=== PATIENT | female | born 1960 | race Caucasian/White ===

== ENCOUNTER 2016-11-06 17:23 | Emergency (ER) | payer MEDICAID ==
[2016-11-06 19:09] LABS: BASOPHILS 0.2 % (0-2); EOSINOPHILS 0.2 % (0-7); HEMATOCRIT 43.7 % (36.0-48.0); HEMOGLOBIN 15.4 g/dL (12-16); IMMATURE GRANULOCYTES 0.2 % (0-5); LYMPHOCYTES 14.9 % (15-50); MCH 34.8 pg (26.0-34.0); MCHC 35.2 g/dL (31.0-37.0); MCV 98.6 fL (80.0-100.0); MONOCYTES 8.9 % (2-11); NEUTROPHILS 75.6 % (40-80); PLATELET COUNT 215 10x3/uL (130-400); RBC 4.43 10x6/uL (4.00-5.40)
[2016-11-06 19:40] LABS: ALBUMIN 4.1 g/dL (3.4-5.0); ANION GAP 19.9 mmol/L (8-16); BILIRUBIN - TOTAL 0.49 mg/dL (0.2-1.3); CALCIUM 9.1 mg/dL (8.5-10.1); CARBON DIOXIDE 24.3 mmol/L (21.0-32.0); CREATININE - SERUM 1.1 mg/dL (0.6-1.3); MAGNESIUM - SERUM 1.9 mg/dL (1.8-2.4); POTASSIUM - SERUM 4.2 mmol/L (3.5-5.1); PROTEIN - SERUM 7.8 g/dL (6.4-8.2)
[2016-11-06 20:03] LABS: UDS - AMPHET NEGATIVE QUAL (NEGATIVE); UDS - BARB NEGATIVE QUAL (NEGATIVE); UDS - BENZO POSITIVE QUAL (NEGATIVE); UDS - COCAINE NEGATIVE QUAL (NEGATIVE); UDS - METH NEGATIVE QUAL (NEGATIVE); UDS - OPIATE NEGATIVE QUAL (NEGATIVE); UDS - PCP NEGATIVE QUAL (NEGATIVE); UDS - THC POSITIVE QUAL (NEGATIVE)
[2016-11-06 20:06] LABS: APPEARANCE HAZY (CLEAR); BILIRUBIN NEGATIVE (NEGATIVE); COLOR YELLOW (YELLOW); GLUCOSE 500 mg/dL (NEGATIVE); KETONE LARGE mg/dL (NEGATIVE); LEUKOCYTE ESTERASE TRACE (NEGATIVE); NITRITE NEGATIVE (NEGATIVE); PROTEIN NEGATIVE (NEGATIVE); SPECIFIC GRAVITY 1.015 (1.005-1.020); UROBILINOGEN NORMAL (NORMAL)
[2016-11-06 20:11] LABS: BACTERIA MODERATE /hpf (NONE SEEN); MUCUS <1+ /lpf (NONE SEEN); RED CELLS - URINE 0-5 /hpf (0-5)
== END 2016-11-06 21:05 | disposition home or self-care (01) ==
LOC: D.ER 17:23
PROVIDERS: Emergency Medicine; Nurse Practitioner Family
DX: K52.9 Noninfective gastroenteritis and colitis, unspecified (principal); F10.10 Alcohol abuse, uncomplicated; R10.9 Unspecified abdominal pain; I10 Essential (primary) hypertension

== ENCOUNTER 2018-01-05 08:32 | Day surgery (SDC) | payer MEDICAID ==
[~2018-01-05] VITALS: Ht 157.5 cm; Wt 68.0 kg
--- NOTE | ~2018-01-05 | OP ---
PATIENT NAME: ABDON FIGUEROA MEDICAL RECORD: [id number] :64 LOCATION:D.OPS ADMISSION DATE: SURGEON: SHASHI MACHUCA MD DATE OF OPERATION: 01/05/2018 PREOPERATIVE DIAGNOSES: 1. Left supraclavicular lipoma. 2. Diabetes mellitus. 3. Hypertension. 4. Arthritis. POSTOPERATIVE DIAGNOSES: 1. Left supraclavicular lipoma. 2. Diabetes mellitus. 3. Hypertension. 4. Arthritis. PROCEDURE: Excision of 5 cm left supraclavicular lipoma. SURGEON: Shashi Machuca MD REPORT OF PROCEDURE: The patient's left shoulder was prepped and draped in sterile fashion. An oblique incision approximately 4 cm in length was made overlying the lipoma. Electrocautery was used to dissect through the subcutaneous tissues. We encountered an area of lipomatous tissue and we began dissecting this out. As we got around the lipoma, we noted that the lipoma was actually projecting through the inferior lateral aspects of the platysma. We this musculature and at this point, there was approximately 5 cm lipoma present in the space underneath the muscle. This was completely excised. Once it was removed, we irrigated out the wound and assured there was no sign of any bleeding. A 10 mL of 0.25% Marcaine with epinephrine were infused into the surrounding tissues. We then reapproximated the subcutaneous tissues with interrupted 3-0 Vicryl and the skin was closed with running subcutaneous 5-0 Monocryl. COMPLICATIONS: None. CONDITION: Stable. ANESTHESIA: General endotracheal and local. BLOOD LOSS: Minimal. TRANSINT:[id number] Voice Confirmation ID: [id number] DOCUMENT ID: [id number] SHASHI MACHUCA MD CC: LAVONNE CEDILLO MD [id number] DICTATION DATE: 01/05/18 1536 [employer] OPERATOR: 01/05/18 1557 [id number] [place] [address]
[~2018-01-05 08:32] MED LIST: GLUCOPHAGE500 MG PO; PAXIL40 MG PO; XANAX1 MG PO; ZESTRIL20 MG PO
[2018-01-05 09:06] LABS: BASOPHILS 0.5 % (0-2); EOSINOPHILS 2.8 % (0-7); HEMATOCRIT 40.5 % (36.0-48.0); LYMPHOCYTES 23.9 % (15-50); MCH 34.2 pg (26.0-34.0); MCHC 34.6 g/dL (31.0-37.0); MEAN PLATELET VOLUME 9.9 fL (7.4-10.4); NEUTROPHILS 59.8 % (40-80); PLATELET COUNT 187 10x3/uL (130-400); RBC 4.09 10x6/uL (4.00-5.40); RDW 12.1 % (11.5-14.5); WBC 6.2 10x3/uL (4.8-10.8)
[2018-01-05 09:22] LABS: ANION GAP 16.8 mmol/L (8-16); CALCIUM 9.3 mg/dL (8.5-10.1); CARBON DIOXIDE 24.8 mmol/L (21.0-32.0); CREATININE - SERUM 0.9 mg/dL (0.6-1.3); POTASSIUM - SERUM 4.6 mmol/L (3.5-5.1)
[2018-01-05 10:43] VITALS: BP 115/73; Ht 157.5 cm; Wt 68.0 kg
[2018-01-05] MEDS ORDERED: NORCO 10-325 TA1 TAB PO (15:33)
== END 2018-01-05 17:30 | disposition home or self-care (01) ==
LOC: D.OPS 08:32 → D.PAN 10:40 → D.OPS 10:40
PROVIDERS: Surgery
DX: D17.1 Benign lipomatous neoplasm of skin and subcutaneous tissue of trunk (principal); E11.9 Type 2 diabetes mellitus without complications; I10 Essential (primary) hypertension; M19.90 Unspecified osteoarthritis, unspecified site; Z01.812 Encounter for preprocedural laboratory examination

== ENCOUNTER 2018-12-06 14:41 | Emergency (ER) | payer MEDICAID ==
[~2018-12-06] VITALS: Ht 157.5 cm; Wt 65.9 kg
[~2018-12-06 14:41] MED LIST changes: +NORCO 10-325 TA1 TAB PO
[2018-12-06 15:02] VITALS: Ht 157.5 cm; Wt 65.9 kg
[2018-12-06 15:30] LABS: BASOPHILS 0.1 % (0-2); EOSINOPHILS 0 % (0-7); HEMATOCRIT 41.9 % (36.0-48.0); HEMOGLOBIN 15.1 g/dL (12-16); IMMATURE GRANULOCYTES 0.3 % (0-5); LYMPHOCYTES 4.8 % (15-50); MCH 34.3 pg (26.0-34.0); MCV 95.2 fL (80.0-100.0); MEAN PLATELET VOLUME 10.3 fL (7.4-10.4); MONOCYTES 4.7 % (2-11); NEUTROPHILS 90.1 % (40-80); RDW 12.3 % (11.5-14.5); WBC 9.6 10x3/uL (4.8-10.8)
[2018-12-06 15:40] LABS: PLATELET COUNT 268 10x3/uL (130-400)
[2018-12-06 15:41] LABS: APPEARANCE CLEAR (CLEAR); BILIRUBIN NEGATIVE (NEGATIVE); COLOR YELLOW (YELLOW); GLUCOSE 100 mg/dL (NEGATIVE); KETONE MODERATE mg/dL (NEGATIVE); NITRITE NEGATIVE (NEGATIVE); PROTEIN TRACE mg/dL (NEGATIVE); SPECIFIC GRAVITY 1.025 (1.005-1.020); UROBILINOGEN NORMAL (NORMAL)
[2018-12-06 15:46] LABS: ALBUMIN 4.1 g/dL (3.4-5.0); ALKALINE PHOSPHATASE 91 U/L (46-116); ALT (SGPT) 38 U/L (10-68); AMYLASE - SERUM 54 U/L (25-115); BILIRUBIN - TOTAL 0.69 mg/dL (0.2-1.3); CALC OSMOLALITY 266 mosm/kg (275-300); CARBON DIOXIDE 23.7 mmol/L (21.0-32.0); CHLORIDE - SERUM 92 mmol/L (98-107); CREATININE - SERUM 0.7 mg/dL (0.6-1.3); LIPASE 89 U/L (73-393); POTASSIUM - SERUM 4.7 mmol/L (3.5-5.1); SODIUM 130 mmol/L (136-145); UREA NITROGEN 14 mg/dL (7-18); eGFR NON AFRICAN AMERICAN > 90 mL/min (90-120)
[2018-12-06 15:51] LABS: GLUCOSE 183 mg/dL (74-106)
[2018-12-06] MEDS ORDERED: PHENERGAN25 M1 PO (17:43)
[2018-12-06] MEDS ORDERED: LOMOTIL 2.5-0.1 EAC1 PO (17:43)
[2018-12-06 18:03] VITALS: BP 120/76
== END 2018-12-06 18:08 | disposition home or self-care (01) ==
LOC: D.ER 14:41
PROVIDERS: Emergency Medicine
DX: A08.4 Viral intestinal infection, unspecified (principal)

== ENCOUNTER 2019-06-24 10:00 | Outpatient (CLI) | payer MEDICAID ==
[2018-12-06 15:02] VITALS: BMI 26.6
[~2019-06-24 10:00] MED LIST changes: +LOMOTIL 2.5-0.1 EAC1 PO; +PHENERGAN25 M1 PO
== END 2019-06-24 11:00 | disposition home or self-care (01) ==
LOC: D.MAMMO 10:00
PROVIDERS: ATTEND Family Medicine
DX: Z12.31 Encounter for screening mammogram for malignant neoplasm of breast (principal)